=== PATIENT | female | born 1960 | race Caucasian/White ===

== ENCOUNTER → 2018-05-10 | Outpatient (CLI) | payer OTHER ==
[2015-11-03 12:36] VITALS: BMI 22.0
[~2018-05-10] MED LIST: ALE70 PO; ASPI-715 PO; DIAZ-308 PO; DOCU-416 PO; GABA-549 PO; IPR14R INH; NABU-95 PO; NAPR220C12 PO; NIT4 SL; OMEP-218 PO; OXYC-865 PO; SIMV10TA98 PO
--- NOTE | 2018-05-10 16:14 | RADIOLOGY IMAGING REPORT ---
FACILITY: [facility] PATIENT NAME: Shayna Cedeno : 1960 MR: [id number] V: [id number] EXAM DATE: ORDERING PHYSICIAN: KIM HATFIELD TECHNOLOGIST: Location: [facility] - [place] Patient: Shayna Cedeno : 1960 Visit/Account:[id number] Date of Sevice: 05/10/2018 DEXA Scan Clinical history: Osteoporosis screening. Comparison: 08/15/2016. LEFT FEMORAL NECK: Bone mineral density (BMD) measured in the femoral neck region correlates with a T-score of -2.3 and a Z-score of -1.0 which is osteopenia as defined by the World Health Organization. Bone mineral density (BMD) measured in the femoral neck region is 0.716 g/cm2. LEFT TOTAL HIP: Total hip bone mineral density (BMD) correlates with a T-score of -2.3 and a Z-score of -1.2 which is osteopenia as defined by the World Health Organization. Left total hip bone density has decreased b y 7.6% compared to previous. The corresponding risk of fracture in the hip is increased compared with a young adult reference popu [facility]. LEFT FOREARM: Bone mineral density (BMD) measured in the forearm correlates with a T-score of -3.1 and a Z-score of -2.2 which is osteoporosis as defined by the World Health Organization. The corresponding risk of f racture in the forearm is increased compared with a young adult reference population. Left forearm b one density has decreased by 1.8% compared to previous. IMPRESSION: 2. Left femoral neck: Osteopenia. 3. Left femoral neck: Bone Mineral Density is 0.716 g/cm2. 4. Left left total hip: Osteopenia. Left total hip bone density has decreased by 7.6% compared to previous. 5. Left forearm: Osteoporosis. Left forearm bone density has decreased by 1.8% compared to previou s. FRAX WHO Fracture Risk Assessment Tool link: <http://www.shef.ac.uk/FRAX/tool.jsp?locationValue=9> PLEASE NOTE: 1) The World Health Organization defines low BMD as follows: T-score Normal > -1 Osteopenia < -1 and > -2.5 Osteoporosis < -2.5 without fractures Established osteoporosis < -2.5 with fractures 2) In general, you may wish to consider: Diagnosis Treatment Follow-up DEXA Normal BMD Prevention 2-3 years Osteopenia Prevention/therapy 1-2 years Osteoporosis Therapy Yearly 3) Fracture risk estimated from the T-score is more accurate for vertebral fractures (often spontane ous) than for hip fractures. Report Dictated By: Larry Levin MD at 05/10/2018 4:04 PM Report E-Signed By: Larry Levin MD at 05/10/2018 4:09 PM WSN:CORBIN
--- NOTE | 2018-05-11 12:38 | RADIOLOGY IMAGING REPORT ---
FACILITY: [facility] - [place] PATIENT NAME: TERRANCE ALLEN : [id number] MR: [id number] V: [id number] EXAM DATE: [id number] ORDERING PHYSICIAN: KIM HATFIELD TECHNOLOGIST: Tamara Lyons PROCEDURE:BILATERAL DIGITAL SCREENING MAMMOGRAM WITH CAD ASSISTED INTERPRETATION & 3D TOMOSYNTHESIS COMPARISON:08/16/2016, 08/17/2015 VIEWS OBTAINED: Bilateral 2D full field Corwin displaced CC & MLO & corresponding 3D tomography, bilateral 2D full field CC & MLO including the breast implants. INDICATIONS:SCREENING/Bilateral breast augmentation with saline implants. TISSUE DENSITY: Scattered fibroglandular densities. FINDINGS: There is no mammographic finding suspicious for malignancy & no significant change compared to prior mammograms. The breast implant are symmetric. DIAGNOSTIC CATEGORY 1--NEGATIVE. RECOMMENDATIONS: ROUTINE ANNUAL BILATERAL MAMMOGRAM AND CLINICAL EVALUATION. IMPRESSION: BIRADS 1: Negative. Dictated by: Karina Funez M.D. on 05/11/2018 at 9:07 Transcribed by: RYDER on 05/11/2018 at 11:24 Approved by: Karina Funez M.D. on 05/11/2018 at 12:37 [facility]
== END ==
LOC: MAMO 00:36
PROVIDERS: ATTEND Family Medicine
DX: Z12.31 Encounter for screening mammogram for malignant neoplasm of breast (principal); M81.0 Age-related osteoporosis without current pathological fracture; M85.88 Other specified disorders of bone density and structure, other site; Z98.82 Breast implant status
CPT/HCPCS: 77063; 77067; 77080